=== PATIENT | female | born 1945 | race Caucasian/White ===

== ENCOUNTER 2020-10-05 02:08 | Emergency (ER) | payer OTHER, MEDICAID ==
[~2020-10-05] VITALS: Ht 144.8 cm; Wt 51.7 kg
[~2020-10-05 02:08] MED LIST: ACET-907 PO; AMYL1CAP PO; ATEN25TA PO; ESTR-7 PO; IBUP-1955 PO; PALI6TAB PO
[2020-10-05 02:11] VITALS: BP 174/111
--- NOTE | 2020-10-05 02:15 | NUR ---
pt bibra c/o nosebleed. Pt [id number] breathing evenly and unlabored. Pt states that when she was getting out of bed, her nose started to bleed. Upon asssessment, pt no longer having active bleeding. MD at bedside. Pt attached to monitor and pox. Pt given blanket and call light within reach
--- NOTE | 2020-10-05 02:35 | NUR ---
[facility] 20 min eta
--- NOTE | 2020-10-05 02:55 | NUR ---
gave report to [facility]
== END 2020-10-05 02:55 | disposition home or self-care (01) ==
LOC: ER 02:08
DX: R04.0 Epistaxis (principal); I10 Essential (primary) hypertension; Z88.1 Allergy status to other antibiotic agents; Z60.2 Problems related to living alone; Z79.899 Other long term (current) drug therapy